=== PATIENT | male | born 1990 | race Caucasian/White ===

== ENCOUNTER 2018-03-08 15:51 | Emergency (ER) | payer OTHER ==
[~2018-03-08] VITALS: Ht 200.7 cm; Wt 105.0 kg
[~2018-03-08 15:51] MED LIST: AUGM875T PO; IBUP800T23 PO
[2018-03-08 15:53] VITALS: BP 179/100; PULSE 66; RESP 18; TEMP 98.2; O2SAT 99
[2018-03-08 17:00] VITALS: BP 136/66; PULSE 57; RESP 14; O2SAT 97
--- NOTE | 2018-03-08 17:25 | PD ---
HPI Chief Complaint: Chest Pain Time Seen by Provider: 17:09 Travel History International Travel<30 days: No Contact w/Intl Traveler<30days: No Traveled to known affect area: No History of Present Illness HPI 27yo M with no PMH presents to the ED with c/o right sided chest pain radiating to right axilla for 4-5 days. Said it is sharp, intermittent and lasts seconds at a time. No exacerbating or alleviating factors. Severity is mild. Pt has been feeling sob since November when he had the flu. Denies any fever, cough, hemoptysis, history of PE/DVT, leg swelling, recent immobilization or surgery, recent travel. Pt said he did not take any medications for pain. PFSH Past Medical History Medical History: Denies Significant Hx Kidney Stones: Yes Past Surgical History Surgical History: No Previous Surgery Social History Alcohol Use: No Tobacco Use: No Substance Use: No Allergies-Medications (Allergen,Severity, Reaction): Coded Allergies: No Known Allergies (Verified Adverse Reaction, Unknown, 03/08/18) Reported Meds & Prescriptions Reported Meds & Active Scripts Active No Active Prescriptions or Reported Medications Review of Systems Except as stated in HPI: all other systems reviewed are Neg Physical Exam Narrative GENERAL: 27yo M not in distress. SKIN: Focused skin assessment warm/dry. HEAD: Atraumatic. Normocephalic. EYES: Pupils equal and round. No scleral icterus. No injection or drainage. ENT: No nasal bleeding or discharge. Mucous membranes pink and moist. NECK: Trachea midline. No JVD. CARDIOVASCULAR: Regular rate and rhythm. No murmur appreciated. RESPIRATORY: No accessory muscle use. Clear to auscultation. Breath sounds equal bilaterally. GASTROINTESTINAL: Abdomen soft, non-tender, nondistended. MUSCULOSKELETAL: No obvious deformities. No clubbing. No cyanosis. No edema. NEUROLOGICAL: Awake and alert. No obvious cranial nerve deficits. Motor grossly within normal limits. Normal speech. PSYCHIATRIC: Appropriate mood and affect; insight and judgment normal. Data Data Last Documented VS Vital Signs Date Time Temp Pulse Resp B/P (MAP) Pulse Ox O2 Delivery O2 Flow Rate FiO2 03/08/18 18:52 16 03/08/18 17:00 57 136/66 (89) 97 Room Air 03/08/18 15:53 98.2 Orders Orders Electrocardiogram (5/29/18 ) Basic Metabolic Panel (Bmp) (03/08/18 17:19) Complete Blood Count With Diff (03/08/18 17:19) Prothrombin Time / Inr (Pt) (03/08/18 17:19) Act Partial Throm Time (Ptt) (03/08/18 17:19) Troponin I (03/08/18 17:19) Chest, Single Ap (03/08/18 17:19) Ibuprofen (Motrin) (03/08/18 17:30) Labs Laboratory Tests Test 03/08/18 17:43 03/08/18 18:00 White Blood Count 6.5 TH/MM3 Red Blood Count 5.32 MIL/MM3 Hemoglobin 15.4 GM/DL Hematocrit 45.2 % Mean Corpuscular Volume 84.9 FL Mean Corpuscular Hemoglobin 29.0 PG Mean Corpuscular Hemoglobin Concent 34.1 % Red Cell Distribution Width 13.0 % Platelet Count 172 TH/MM3 Mean Platelet Volume 9.0 FL Neutrophils (%) (Auto) 58.6 % Lymphocytes (%) (Auto) 31.9 % Monocytes (%) (Auto) 8.0 % Eosinophils (%) (Auto) 0.7 % Basophils (%) (Auto) 0.8 % Neutrophils # (Auto) 3.8 TH/MM3 Lymphocytes # (Auto) 2.1 TH/MM3 Monocytes # (Auto) 0.5 TH/MM3 Eosinophils # (Auto) 0.0 TH/MM3 Basophils # (Auto) 0.1 TH/MM3 CBC Comment DIFF FINAL Differential Comment Blood Urea Nitrogen 11 MG/DL Creatinine 0.98 MG/DL Random Glucose 89 MG/DL Calcium Level 9.1 MG/DL Sodium Level 140 MEQ/L Potassium Level 4.0 MEQ/L Chloride Level 106 MEQ/L Carbon Dioxide Level 27.4 MEQ/L Anion Gap 7 MEQ/L Estimat Glomerular Filtration Rate 92 ML/MIN Troponin I LESS THAN 0.02 NG/ML Prothrombin Time 10.7 SEC Prothromb Time International Ratio 1.1 RATIO Activated Partial Thromboplast Time 27.8 SEC [facility] Medical Decision Making Medical Screen Exam Complete: Yes Emergency Medical Condition: Yes Interpretation(s) EKG: Sinus bradycardia at 59bpm. Normal axis. No ST segment elevation or depression. Differential Diagnosis Musculoskeletal pain vs. anxiety vs. costochondritis Narrative Course 27yo M with atypical right sided chest pain. Pt said [facility] sure he does not have a pneumothorax or blood clot in his lungs. Pt scored a 0 on PERC rule for PE and no further testing is needed. Pt does smoke cig occasionally. Labs reviewed, no leukocytosis. H/H normal. Troponin negative. CXR showed no acute cardiopulmonary abnormality is identified. Pt is saturating at 98% on RA and HR is in the 60s. He is very well appearing. Do not think this is cardiac chest pain. Return precautions given. Diagnosis Primary Impression: Atypical chest pain Patient Instructions: General Instructions Departure Forms: Tests/Procedures Additional Instructions: Please follow up with your primary care physician in 2-3 days. Return to the ED if symptoms worsen. Med/Other Pt SpecificInfo: Prescription(s) given Scripts Ibuprofen (Ibuprofen) 600 Mg Tab 600 MG PO Q8HR Y for PAIN, #20 TAB 0 Refills Prov: Erika Arriaga DO 03/08/18 Disposition: 01 DISCHARGE HOME Condition: Stable Erika Arriaga DO March 08, 2018 17:25
[2018-03-08] MEDS ORDERED: IBUPROFEN 600 MG TAB PO ONE (17:30)
--- NOTE | 2018-03-08 18:00 | RADRPT ---
EXAM DATE: 03/08/2018 5:57 PM EDT AGE/SEX: 27 years / Male INDICATIONS: Right upper chest pain. CLINICAL DATA: This is the patient's initial encounter. Patient reports that signs and symptoms have been present for 4 - 6 days and indicates a pain score of 5/10. MEDICAL/SURGICAL HISTORY: None. None. COMPARISON: No prior [place] exams available for comparison. FINDINGS: Portable AP view of the chest demonstrates a normal-sized cardiac silhouette. The lungs demonstrate n o definite effusion, consolidation, or pneumothorax. The bones and soft tissues demonstrate no acute finding. EKG lines overlie the patient. CONCLUSION: No acute cardiopulmonary abnormality is identified. Electronically signed by: Prashant Leonard MD 03/08/2018 5:59 PM EDT
[2018-03-08 18:37] LABS: INTERNATIONAL NORMALIZED RATIO 1.1 RATIO; PROTHROMBIN TIME - PATIENT 10.7 SEC (9.8-11.6)
[2018-03-08 18:39] LABS: BICARBONATE 27.4 MEQ/L (21.0-32.0); BLOOD UREA NITROGEN 11 MG/DL (7-18); CALCIUM 9.1 MG/DL (8.5-10.1); CHLORIDE 106 MEQ/L (98-107); CREATININE 0.98 MG/DL (0.60-1.30); GLOMERULAR FILTRATION RATE 92 ML/MIN (>89); GLUCOSE,RANDOM 89 MG/DL (74-106); SODIUM (NA) 140 MEQ/L (136-145)
[2018-03-08 18:43] LABS: TROPONIN I LESS THAN 0.02 NG/ML (0.02-0.05)
[2018-03-08 18:52] VITALS: RESP 16
[2018-03-08 18:59] LABS: AUTOMATED NEUTROPHIL # 3.8 TH/MM3 (1.8-7.7); BASOPHIL # 0.1 TH/MM3 (0-0.2); BASOPHIL % 0.8 % (0.0-2.0); EOSINOPHIL % 0.7 % (0.0-4.0); HEMATOCRIT 45.2 % (39.0-51.0); HEMOGLOBIN 15.4 GM/DL (13.0-17.0); LYMPH % 31.9 % (9.0-44.0); LYMPHOCYTE # 2.1 TH/MM3 (1.0-4.8); MEAN CELL VOLUME 84.9 FL (80.0-100.0); MEAN CORPUSCULAR HGB CONC 34.1 % (32.0-36.0); MONOCYTE # 0.5 TH/MM3 (0-0.9); NEUT % 58.6 % (16.0-70.0); PLATELET COUNT 172 TH/MM3 (150-450); RED BLOOD COUNT 5.32 MIL/MM3 (4.50-5.90); WHITE BLOOD COUNT 6.5 TH/MM3 (4.0-11.0)
[2018-03-08] MEDS ORDERED: IBUP-232 PO (20:05)
--- NOTE | 2018-03-09 14:14 | EKG ---
Date Performed: 03/08/2018 Time Performed: 16:03:28 PTAGE: 27 years EKG: SINUS BRADYCARDIA BORDERLINE ECG NO PREVIOUS TRACING DOCTOR: Cj Tony Interpretating Date/Time 03/09/2018 14:13:34
== END 2018-03-08 20:23 | disposition home or self-care (01) ==
LOC: NEPD 15:51
DX: R07.89 Other chest pain (principal); R06.02 Shortness of breath; R94.31 Abnormal electrocardiogram [ECG] [EKG]
CPT/HCPCS: 71045; 80048; 84484; 85025; 85610; 85730; 93005